=== PATIENT | male | born 1985 | race Caucasian/White ===

== ENCOUNTER 2020-06-19 17:24 | Emergency (ER) | payer MEDICARE, MEDICAID, SELFPAY ==
[2020-06-19 17:42] VITALS: BP 127/74; PULSE 120; RESP 18; TEMP 38.1; O2SAT 95; BMI 26.5
[2020-06-19] MEDS: Acetaminophen 325 MG TABLET 650 MG PO (17:50)
--- NOTE | 2020-06-19 17:53 | ED.FEVER ---
HPI - Fever General Chief Complaint: Fever Stated Complaint: weakness,fever Time Seen by Provider: 06/19/20 17:50 Source: patient Mode of arrival: ambulatory Limitations: no limitations History of Present Illness HPI Narrative: Patient's history of colon cancer stage III in remission not on any immunosuppressant at this time noticed small subcutaneous abscess in right lower back about 3 days ago which got worse today went to [facility] where they did I and D patient went home and started having shaking chills came here with temperature of 102.7 degrees in the ER otherwise patient feels fine patient had a COVID testing done today earlier was negative patient had few abscesses in the past on but never been told MRSA MD elicited complaint: fever Related Data Allergies Allergy/AdvReac Type Severity Reaction Status Date / Time No Known Allergies Allergy Unverified 02/15/20 16:34 Review of Systems Review of Systems: Constitutional : No Weight loss, ++ Fever, ++ Chills ENT/Mouth : No sore throat, No Rhinorrhea Eyes: No Eye Pain, No Swelling Cardiovascular : No Chest Pain, no palpitations Respiratory : No Cough, No Sputum, no shortness of breath Gastrointestinal : no Nausea, No Vomiting, No Diarrhea, No abdominal Pain, no black stools Genitourinary : No Dysuria, No Urinary Frequency Musculoskeletal : No joint pain, No Myalgias, No Joint Swelling Skin : Abscess on the right lower back with redness around it Neuro : No Weakness, No Numbness, No Dizziness, No Headache Psych : No Anxiety/Panic, No Depression Heme/Lymph: No Bruising, No Lymphadenopathy Endocrine : No Polyuria, No Polydipsia All other systems reviewed and are negative PMFSH Past Medical History Medical History Colon cancer Surgical History S/P partial colectomy Social History Social History Smoked in Last 30 Days: Yes Use of substances other than those prescribed or required for medical reasons: No Advance Directives: No Advance Directives Information Provided: Yes Physical Exam Vital Signs: Vital Signs: Last Vital Signs Temp 99.3 F 06/19/20 20:00 Pulse 97 06/19/20 20:00 Resp 17 06/19/20 20:00 BP 113/63 06/19/20 20:00 Pulse Ox 97 06/19/20 20:00 Body Mass Index 26.5 Appearance: Alert. Oriented X3. No acute distress. Eyes: Pupils equal, round and reactive to light. ENT: Pharynx normal. Neck: Normal inspection. Neck supple. CVS: Tachycardiac, S1-S2 normal no murmur Pulses normal. Respiratory: No respiratory distress. Breath sounds normal. Abdomen: Soft and nontender. Bowel sounds are present, no mass palpable, no CVA tenderness Skin: Skin warm and dry. 7 x 7 cm superficial abscess in the right lower back status post I&D with surrounding erythema Extremities: No lower extremity edema. Neuro: Oriented X 3. No motor deficit. No sensory deficit. MDM - Fever MDM Narrative Medical decision making narrative: Patient with superficial abscess status post I&D came for the fever patient's white counts are elevated to 18.3 with normal lactic acid level patient received IV vancomycin and Zosyn in the ER and already has a prescription of doxycycline and Keflex in the pharmacy which will start taking from tomorrow also patient urine is infected with trace leuko esterase and wbc's 15-29 patient will get the medication start tomorrow patient afebrile now and not any more tachycardic feels much better will discharge patient home advised to come back to the ER if not better Differential Diagnosis Differential diagnosis: Likely cellulitis Lab Data Attestation: I reviewed the patient's lab results. Result diagrams: 06/19/20 18:21 06/19/20 18:21 Labs: Lab Results 06/19/20 06/19/20 06/19/20 Range/Units 18:21 18:21 18:21 WBC 18.3 H (4.8-10.8) X10*3/uL RBC 5.14 (4.60-5.80) X10*6/uL Hgb 14.9 (14.0-18.0) g/dl Hct 44.6 (42-52) % MCV 86.8 (80-98) fL MCH 29.0 (27.0-33.0) pg MCHC 33.4 (31.0-36.0) g/dl RDW 12.6 (11.0-16.0) % Plt Count 136 L (160-400) X10*3/uL MPV 12.1 (9.4-12.4) fL Immature Gran % (Auto) 0.9 H (0.0-0.4) % Neut % (Auto) 89.9 H (45-73) % Lymph % (Auto) 3.4 L (20-40) % [place] % (Auto) 5.5 (2-11) % Eos % (Auto) 0.1 (0-4) % Baso % (Auto) 0.2 (0-2) % Lymph # (Auto) 0.6 L (1.2-4.9) X10*3/uL [place] # (Auto) 1.0 (0.1-1.2) X10*3/uL Eos # (Auto) 0.0 (0.0-0.4) X10*3/uL Baso # (Auto) 0.0 (0.0-0.2) X10*3/uL Abs Immat Gran (auto) 0.16 H (0.00-0.03) X10*3/uL Absolute Neuts (auto) 16.5 H (2.0-8.3) X10*3/uL Absolute Nucleated RBC 0.000 (0.0-0.012) X10*3/uL Nucleated RBC % (auto) 0.0 (0.0-0.2) /100WBC Smear Tech's Comments VERIFIED Sodium 136 (135-145) mmol/L Potassium 5.1 (3.3-5.1) mmol/l Chloride 100 (96-108) mmol/L Carbon Dioxide 27 (22-29) mmol/L Anion Gap 14 (12-20) BUN 14 (9-16) mg/dL Creatinine 1.01 (0.5-1.4) mg/dL Estim Creat Clear Calc 106.4 Estimated GFR > 60 Random Glucose 112 (60-115) mg/dL Lactic Acid 1.0 (0.5-2.0) mmol/L Calcium 9.1 (8.4-10.2) mg/dL Urine Color Urine Appearance Urine pH (5.0-8.0) Ur Specific [place] (1.005-1.025) Urine Protein (NEG-TRACE) MG/DL Urine Glucose (UA) (NEG) MG/DL Urine Ketones (NEG) MG/DL Urine Blood (NEG) Urine Nitrite (NEG) Ur Leukocyte Esterase (NEG) Urine RBC (0) /HPF Urine WBC (0-4) /HPF Ur Squamous Epith Cells /LPF Urine Bacteria /LPF Urine Mucus /LPF 06/19/20 Range/Units 18:40 WBC (4.8-10.8) X10*3/uL RBC (4.60-5.80) X10*6/uL Hgb (14.0-18.0) g/dl Hct (42-52) % MCV (80-98) fL MCH (27.0-33.0) pg MCHC (31.0-36.0) g/dl RDW (11.0-16.0) % Plt Count (160-400) X10*3/uL MPV (9.4-12.4) fL Immature Gran % (Auto) (0.0-0.4) % Neut % (Auto) (45-73) % Lymph % (Auto) (20-40) % [place] % (Auto) (2-11) % Eos % (Auto) (0-4) % Baso % (Auto) (0-2) % Lymph # (Auto) (1.2-4.9) X10*3/uL [place] # (Auto) (0.1-1.2) X10*3/uL Eos # (Auto) (0.0-0.4) X10*3/uL Baso # (Auto) (0.0-0.2) X10*3/uL Abs Immat Gran (auto) (0.00-0.03) X10*3/uL Absolute Neuts (auto) (2.0-8.3) X10*3/uL Absolute Nucleated RBC (0.0-0.012) X10*3/uL Nucleated RBC % (auto) (0.0-0.2) /100WBC Smear Tech's Comments Sodium (135-145) mmol/L Potassium (3.3-5.1) mmol/l Chloride (96-108) mmol/L Carbon Dioxide (22-29) mmol/L Anion Gap (12-20) BUN (9-16) mg/dL Creatinine (0.5-1.4) mg/dL Estim Creat Clear Calc Estimated GFR Random Glucose (60-115) mg/dL Lactic Acid (0.5-2.0) mmol/L Calcium (8.4-10.2) mg/dL Urine Color YELLOW Urine Appearance HAZY Urine pH 6.0 (5.0-8.0) Ur Specific [place] 1.025 (1.005-1.025) Urine Protein TRACE (NEG-TRACE) MG/DL Urine Glucose (UA) NEG (NEG) MG/DL Urine Ketones NEG (NEG) MG/DL Urine Blood TRACE (NEG) Urine Nitrite NEG (NEG) Ur Leukocyte Esterase TRACE H (NEG) Urine RBC 5-9 H (0) /HPF Urine WBC 15-29 H (0-4) /HPF Ur Squamous Epith Cells 2+ /LPF Urine Bacteria 1+ /LPF Urine Mucus 2+ /LPF Discharge Plan Discharge Clinical Impression: Abscess Cellulitis Qualifiers: Site of cellulitis: trunk Site of cellulitis of trunk: back Qualified Code(s): L03.312 - Cellulitis of back [any part except buttock] Patient Disposition: Home, Self-Care Instructions: Cellulitis (ED), Abscess (ED) Additional Instructions: Continue antibiotic as prescribed doxycycline and Keflex. Tylenol/Motrin for fever or pain. Report to the ER if fever continues or swelling/rash gets worse Stand Alone Forms: Work/School Release Interventions: ED Discharge Assessment Last Done: 06/19/20 20:32 Discharge Date/Time: 06/19/20 20:33
[2020-06-19 18:31] LABS: Basophils Percent Auto 0.2 % (0-2); Eosinophils Percent Auto 0.1 % (0-4); Hematocrit 44.6 % (42-52); Hemoglobin 14.9 g/dl (14.0-18.0); Imm Gran Abs Auto 0.16 X10*3/uL (0.00-0.03); Imm Gran Pct Auto 0.9 % (0.0-0.4); Lymphocytes Absolute Auto 0.6 X10*3/uL (1.2-4.9); Lymphocytes Percent Auto 3.4 % (20-40); MANUAL DIFF FLAG SCAN; Mean Corpuscular HGB Conc 33.4 g/dl (31.0-36.0); Mean Corpuscular Volume 86.8 fL (80-98); Mean Platelet Volume 12.1 fL (9.4-12.4); Monocytes Percent Auto 5.5 % (2-11); Neutrophils Absolute Auto 16.5 X10*3/uL (2.0-8.3); Neutrophils Percent Auto 89.9 % (45-73); Platelet Count 136 X10*3/uL (160-400); Red Blood Count 5.14 X10*6/uL (4.60-5.80); Red Cell Distribution Width 12.6 % (11.0-16.0); SCAN SMEAR FLAG 1; White Blood Count 18.3 X10*3/uL (4.8-10.8)
[2020-06-19] MEDS: 0.9 % Sodium Chloride 1,000 ML 999 ML IVCONT (18:42)
[2020-06-19] MEDS: Ketorolac Tromethamine 30 MG/ML VIAL IVPUSH (18:44)
[2020-06-19] MEDS: Piperacillin Sodium/Tazobactam 3.375 GM in 0.9 % Sodium Chloride 50 ML IV (18:44)
[2020-06-19 18:48] LABS: Anion Gap 14 (12-20); Blood Urea Nitrogen 14 mg/dL (9-16); Calcium 9.1 mg/dL (8.4-10.2); Carbon Dioxide 27 mmol/L (22-29); Chloride 100 mmol/L (96-108); Creatinine Clr Calc Pharmacy 106.4; Estimated Glomerular Filt Rate > 60; Glucose Random 112 mg/dL (60-115); Potassium 5.1 mmol/l (3.3-5.1); Sodium 136 mmol/L (135-145)
[2020-06-19] MEDS: vancomycin HCL 1,000 MG in 0.9 % Sodium Chloride 250 ML 270 MG IV (18:49)
[2020-06-19 18:52] LABS: Glucose Urine UA NEG (NEG); Leukocyte Esterase Urine TRACE (NEG); Nitrite Urine NEG (NEG); Specific Gravity - Urine 1.025 (1.005-1.025); Urine Blood TRACE (NEG); Urine Ketones NEG (NEG); Urine Protein TRACE MG/DL (NEG-TRACE)
[2020-06-19 18:54] LABS: Appearance Urine HAZY; Color Urine YELLOW
[2020-06-19 19:02] LABS: SLIDE REVIEW VERIFIED
[2020-06-19 19:18] LABS: Bacteria Urine 1+ /LPF; Mucus Urine 2+ /LPF; Squamous Epithelial Cell Urine 2+ /LPF
[2020-06-19 20:00] VITALS: BP 113/63; PULSE 97; RESP 17; TEMP 37.4; O2SAT 97
== END 2020-06-19 20:33 | disposition home or self-care (01) ==
PROVIDERS: Emergency Provider Internal Medicine
DX: L03.312 Cellulitis of back [any part except buttock and flank] (principal); R50.9 Fever, unspecified; Z85.038 Personal history of other malignant neoplasm of large intestine
CPT/HCPCS: 36415; 80048; 81001; 83605; 85025; 87040; 87077; 87086; 87186; 87205; 96361; 96365; 96367; 96375; 99284; J1885; J2543; J3370

== ENCOUNTER 2020-06-20 16:02 | Emergency (ER) | payer MEDICARE, MEDICAID, SELFPAY ==
--- NOTE | 2020-06-20 16:18 | ED.SKABFB ---
HPI - Skin/Abscess/Foreign Bdy General Chief complaint: Recheck/Abnormal Lab/Rx Stated complaint: ?abnormal labs Time Seen by Provider: 06/20/20 16:14 Source: patient Mode of arrival: ambulatory Limitations: no limitations History of Present Illness HPI narrative: Called and told that his cultures were positive from his abscess and to come back in. Patient had colon cancer and chemo in the past. Patient supposed to be on keflex an doxy but has not taken them yet. Related Data Previous Rx's Medication Instructions Recorded cephalexin [Keflex] 500 mg PO QID #40 cap 06/20/20 doxycycline hyclate 100 mg PO BID #20 cap 06/20/20 Allergies Allergy/AdvReac Type Severity Reaction Status Date / Time No Known Allergies Allergy Unverified 02/15/20 16:34 Review of Systems Constitutional: Constitutional: Reports no additional constitutional complaints Eyes: Eyes: Reports no additional eye complaints ENT: Denies dizziness Cardiovascular: Cardiovascular: Reports no additional cardiovascular complaints Respiratory: Respiratory: Reports as per HPI Gastrointestinal: Gastrointestinal: Reports no additional gastrointestinal complaints Musculoskeletal: Musculoskeletal: Reports no additional musculoskeletal complaints Integumentary/Breasts: Skin/Breast: Denies rash Neurologic: Reports system reviewed and no additional complaints, except as documented, Denies dizziness and Denies Sensory deficit (Neuro) Psychiatric: Psychiatric: Denies anxiety PMFSH Past Medical History Medical History Colon cancer Surgical History S/P partial colectomy Social History Social History Alcohol intake: never Smoking Status: Current every day smoker Use of substances other than those prescribed or required for medical reasons: No Advance Directives: No Advance Directives Information Provided: Yes Physical Exam Vital Signs: Vital Signs: Last Vital Signs Temp 99.3 F 06/20/20 16:20 Pulse 115 H 06/20/20 16:20 Resp 17 06/20/20 16:20 BP 149/86 H 06/20/20 16:20 Pulse Ox 98 06/20/20 16:20 Body Mass Index 26.5 Const: General: healthy appearing Nutritional Appearance: average body habitus Orientation/consciousness: oriented to person and patient oriented x3 Limitations: no limitations HENMT: Head: Yes normal to inspection Ears: external ears normal General nose exam: Normal external nose present Mouth: Normal oral and palatal mucosa present and oropharynx normal Throat: Yes posterior oropharynx normal Eyes: General: appearance normal, both eyes and all related structures Neck: Other: supple Neck: Yes normal visual inspection Chest: Chest palpation & inspection: normal inspection of the chest Resp: Auscultation: clear to auscultation bilaterally Cardio: Jugular venous distension: no JVD Rate: regular rate Rhythm: regular rhythm Heart sounds: S1 normal heart sound present and S2 normal heart sound present GI: Inspection: Yes normal to inspection Palpation (GI): Soft to palpation, nontender and No hepatosplenomegaly present Auscultation: normal bowel sounds : General: Yes no CVA tenderness Back/Spine/Pelvis: Back: no CVA tenderness Skin: Other: hard indurated area with slight drainage and 10cm of surrounding erythema, no fluctuance felt Neuro: General: oriented to person and patient oriented x3 Cranial nerves: Yes CN's II-XII intact bilaterally Motor exam (neuro): 5/5 motor strength present throughout Sensory Exam: No Sensory deficit (Neuro) Extrem: General: Yes normal to inspection Psych: Appearance: grossly normal Course Course Course Narrative: WBC down to 12, patient well appearing. I believe the blood cx was contaminant so I recultured MDM - Skin/Abscess/Foreign Bdy Lab Data Result diagrams: 06/20/20 16:49 Labs: Lab Results 06/20/20 Range/Units 16:49 WBC 12.4 H (4.8-10.8) X10*3/uL RBC 4.79 (4.60-5.80) X10*6/uL Hgb 13.9 L (14.0-18.0) g/dl Hct 41.6 L (42-52) % MCV 86.8 (80-98) fL MCH 29.0 (27.0-33.0) pg MCHC 33.4 (31.0-36.0) g/dl RDW 12.4 (11.0-16.0) % Plt Count 120 L (160-400) X10*3/uL MPV 12.4 (9.4-12.4) fL Immature Gran % (Auto) 0.2 (0.0-0.4) % Neut % (Auto) 87.6 H (45-73) % Lymph % (Auto) 6.4 L (20-40) % [place] % (Auto) 5.3 (2-11) % Eos % (Auto) 0.3 (0-4) % Baso % (Auto) 0.2 (0-2) % Lymph # (Auto) 0.8 L (1.2-4.9) X10*3/uL [place] # (Auto) 0.7 (0.1-1.2) X10*3/uL Eos # (Auto) 0.0 (0.0-0.4) X10*3/uL Baso # (Auto) 0.0 (0.0-0.2) X10*3/uL Abs Immat Gran (auto) 0.03 (0.00-0.03) X10*3/uL Absolute Neuts (auto) 10.8 H (2.0-8.3) X10*3/uL Absolute Nucleated RBC 0.000 (0.0-0.012) X10*3/uL Nucleated RBC % (auto) 0.0 (0.0-0.2) /100WBC Discharge Plan Discharge Clinical Impression: Encounter for wound re-check Cellulitis Qualifiers: Site of cellulitis: trunk Site of cellulitis of trunk: back Qualified Code(s): L03.312 - Cellulitis of back [any part except buttock] Patient Disposition: Home, Self-Care Instructions: Cellulitis (ED) Additional Instructions: warm soaks to area Prescriptions: New cephalexin [Keflex] 500 mg capsule 500 mg PO QID Qty: 40 RF: 0 doxycycline hyclate 100 mg capsule 100 mg PO BID Qty: 20 RF: 0
[2020-06-20 16:20] VITALS: BP 149/86; PULSE 115; RESP 17; TEMP 37.4; O2SAT 98; BMI 26.5
--- NOTE | 2020-06-20 17:01 | PC.NURSE ---
Abscess to lower middle back reddened with some serosanguenous drainage. The site was cleansed with NS and dressed with a DSD.
[2020-06-20] MEDS: ceFAZolin Sodium/Dextrose,Iso 2 GM/50 ML PIGGYBACK IV (17:06)
[2020-06-20 17:11] LABS: MANUAL DIFF FLAG NO
[2020-06-20 17:13] LABS: Basophils Percent Auto 0.2 % (0-2); Eosinophils Percent Auto 0.3 % (0-4); Hematocrit 41.6 % (42-52); Hemoglobin 13.9 g/dl (14.0-18.0); Imm Gran Abs Auto 0.03 X10*3/uL (0.00-0.03); Imm Gran Pct Auto 0.2 % (0.0-0.4); Lymphocytes Absolute Auto 0.8 X10*3/uL (1.2-4.9); Lymphocytes Percent Auto 6.4 % (20-40); Mean Corpuscular HGB Conc 33.4 g/dl (31.0-36.0); Mean Corpuscular Volume 86.8 fL (80-98); Mean Platelet Volume 12.4 fL (9.4-12.4); Monocytes Absolute Auto 0.7 X10*3/uL (0.1-1.2); Monocytes Percent Auto 5.3 % (2-11); Neutrophils Absolute Auto 10.8 X10*3/uL (2.0-8.3); Neutrophils Percent Auto 87.6 % (45-73); Platelet Count 120 X10*3/uL (160-400); Red Blood Count 4.79 X10*6/uL (4.60-5.80); Red Cell Distribution Width 12.4 % (11.0-16.0); White Blood Count 12.4 X10*3/uL (4.8-10.8)
== END 2020-06-20 18:05 | disposition home or self-care (01) ==
PROVIDERS: Emergency Provider Emergency Medicine
DX: L03.312 Cellulitis of back [any part except buttock and flank] (principal); F17.200 Nicotine dependence, unspecified, uncomplicated; Z71.6 Tobacco abuse counseling; Z79.899 Other long term (current) drug therapy
CPT/HCPCS: 36415; 85025; 87040; 96365; 99283; 99284; J0690

== ENCOUNTER 2021-04-16 19:48 | Emergency (ER) | payer MEDICARE, MEDICAID, SELFPAY ==
[2021-04-16 20:07] VITALS: BP 140/78; PULSE 96; RESP 18; TEMP 37.1; O2SAT 96; BMI 26.5
[2021-04-16 21:06] LABS: Appearance Urine CLOUDY; Color Urine YELLOW; Glucose Urine UA NEG (NEG); Leukocyte Esterase Urine 1+ (NEG); Nitrite Urine NEG (NEG); Specific Gravity - Urine >= 1.030 (1.005-1.025); UACC Culture Trigger YES; Urine Blood 3+ (NEG); Urine Ketones NEG (NEG); Urine Protein 2+ MG/DL (NEG-TRACE)
[2021-04-16 21:18] LABS: Calcium Oxalate Crystals Urine 2+ /LPF; Squamous Epithelial Cell Urine TRACE /LPF
--- NOTE | 2021-04-16 21:35 | ED_ITS ---
HPI - Male Genitourinary General Chief complaint: Urogenital-Male Stated complaint: bladder pain and blood in urine Time Seen by Provider: 04/16/21 21:23 Source: patient Mode of arrival: ambulatory Limitations: no limitations History of Present Illness HPI Narrative: 36-year-old male with a history of stage IIIB colon cancer 3 years ago s/p resection, chemotherapy, radiation now in remission who presents to the ER with lower abdominal discomfort and dysuria for the last 2 days. He reports dark foul-smelling urine that improved with increased oral hydration. He also reports new onset hematuria with a few drops of blood at the end of his stream today. He states he has discomfort in his bladder area and some intermittent cramping. Had admits to urinary frequency and urgency. He has had no fever or chills. He has had no back pain or flank pain. No nausea, vomiting, diarrhea. He is tolerating p.o. no history of kidney stones. MD Complaint: dysuria Onset (ago): day(s) (2) Duration: intermittent Location: abdomen (Suprapubic area) Radiation: penis Severity: moderate Quality: aching, burning and dull Relieving factors: none Exacerbating factors: urination Associated symptoms: Reports blood in urine and dysuria Related Data Sexually active: Yes Previous Rx's Medication Instructions Recorded cephalexin 500 mg capsule (Keflex) 500 mg PO QID #40 cap 06/20/20 doxycycline hyclate 100 mg capsule 100 mg PO BID #20 cap 06/20/20 doxycycline monohydrate 100 mg 100 mg PO BID #8 cap 06/27/20 capsule levofloxacin 750 mg tablet 750 mg PO DAILY #7 tab 04/16/21 Allergies Allergy/AdvReac Type Severity Reaction Status Date / Time No Known Allergies Allergy Verified 04/16/21 20:06 Review of Systems Review of Systems: Constitutional: No Fever, No Chills Cardiovascular: No Chest Pain, No SOB Respiratory: No Cough, No Sputum Gastrointestinal: No Nausea, No Vomiting, No Diarrhea, No abdominal Pain, No Hematochezia, No Melena Genitourinary: + Dysuria, + Urinary Frequency, + Hematuria Musculoskeletal: No joint pain, No Myalgias Skin: No Skin Lesions, No rash Heme/Lymph: No Lymphadenopathy Endocrine: No Polyuria, No Polydipsia PMFSH Past Medical History Medical History Colon cancer Surgical History S/P partial colectomy Social History Social History Alcohol intake: unknown Patient Tobacco Use Status: Tobacco use Unknown Use of substances other than those prescribed or required for medical reasons: Unknown Advance Directives: No Advance Directives Information Provided: No Physical Exam Vital Signs: Vital Signs: Last Vital Signs Temp 98.8 F 04/16/21 20:07 Pulse 96 04/16/21 20:07 Resp 18 04/16/21 20:07 BP 140/78 H 04/16/21 20:07 Pulse Ox 96 04/16/21 20:07 Body Mass Index 26.5 Appearance: Alert. Oriented X3. No acute distress. HEENT: normal external inspection Neck: Normal inspection. Neck supple. CVS: Normal heart rate and rhythm. Pulses normal. Respiratory: No respiratory distress. Breath sounds normal. Abdomen: Soft and nontender. +BS x4. No CVA tenderness : Normal inspection of external genitalia. No urethral discharge, no testicular tenderness. Skin: Skin warm and dry. Normal skin color. Normal skin turgor. No rashes. Extremities: No lower extremity edema. Neuro: Oriented X 3. Grossly normal, nonfocal. Course Course Course Narrative: 36-year-old male with a history of colon cancer now in remission presents to the ER with suprapubic abdominal pain and dysuria along with new onset hematuria that started today. He recently had normal blood work done by his oncologist couple weeks ago. He has no systemic signs of infection and is nontoxic appearing. Vital signs are normal and his exam is benign. His urinalysis is positive for infection with microscopic hematuria. No signs of pyelonephritis. Doubt kidney stone, he has no flank pain and appears very comfortable. Will start on antibiotics and discharged home with plan for outpatient follow-up. MDM - Male Genitourinary Lab Data Labs: Lab Results 04/16/21 Range/Units 20:48 Urine Color YELLOW Urine Appearance CLOUDY Urine pH 6.0 (5.0-8.0) Ur Specific [place] >= 1.030 H (1.005-1.025) Urine Protein 2+ H (NEG-TRACE) MG/DL Urine Glucose (UA) NEG (NEG) MG/DL Urine Ketones NEG (NEG) MG/DL Urine Blood 3+ H (NEG) Urine Nitrite NEG (NEG) Ur Leukocyte Esterase 1+ H (NEG) Urine RBC 10-14 H (0) /HPF Urine WBC 76-150 H (0-4) /HPF Ur Squamous Epith Cells TRACE /LPF Calcium Oxalate Crystal 2+ /LPF Urine Bacteria NONE /LPF Discharge Plan Discharge Clinical Impression: Urinary tract infection Qualifiers: Urinary tract infection type: acute cystitis Hematuria presence: with hematuria Qualified Code(s): N30.01 - Acute cystitis with hematuria Patient Disposition: Home, Self-Care Instructions: Urinary Tract Infection in Men (ED) Additional Instructions: Your urine test showed infection. Take the prescribed antibiotic as directed - started taking tomorrow night. You were given the 1st dose tonight in the ER. Drink plenty of water. Follow up with your doctor as needed. If you develop new or worsening symptoms call 911 or come back to the ER for further evaluation. Prescriptions: New levofloxacin 750 mg tablet 750 mg PO DAILY Qty: 7 RF: 0 No Action cephalexin [Keflex] 500 mg capsule 500 mg PO QID Qty: 40 RF: 0 doxycycline hyclate 100 mg capsule 100 mg PO BID Qty: 20 RF: 0 doxycycline monohydrate 100 mg capsule 100 mg PO BID Qty: 8 RF: 0 Interventions: ED Discharge Assessment Last Done: 04/16/21 21:46 Discharge Date/Time: 04/16/21 21:46
[2021-04-16] MEDS: levoFLOXacin 750 MG TABLET PO (21:42)
== END 2021-04-16 21:46 | disposition home or self-care (01) ==
PROVIDERS: Emergency Provider Emergency Medicine
DX: N30.01 Acute cystitis with hematuria (principal); Z85.038 Personal history of other malignant neoplasm of large intestine
CPT/HCPCS: 81001; 81003; 87086; 99283; 99284

== ENCOUNTER 2021-07-12 19:38 | Emergency (ER) | payer MEDICARE, MEDICAID, SELFPAY ==
--- NOTE | 2021-07-12 | ECG_ITS ---
Test Reason : CHEST PAIN Blood Pressure : / mmHG Vent. Rate : 085 BPM Atrial Rate : 085 BPM P-R Int : 170 ms QRS Dur : 090 ms QT Int : 346 ms P-R-T Axes : 039 077 040 degrees QTc Int : 411 ms Normal sinus rhythm Normal ECG No previous ECGs available Referred By: Generic ED Physician Electronically Signed By:Jose Grissom
--- NOTE | ~2021-07-12 | XR_ITS ---
EXAMINATION: XR CHEST CLINICAL INFORMATION: Chest pain COMPARISON: None TECHNIQUE: Frontal view of the chest was obtained. FINDINGS: No significant abnormality is noted involving the heart, lungs, mediastinum, bony thorax or soft tissues. XR/XR chest 1V IMPRESSION: Unremarkable examination.
--- NOTE | ~2021-07-12 | CT_ITS ---
EXAMINATION: CT ANGIOGRAM OF THE CHEST; CONTRAST-ENHANCED CT OF THE ABDOMEN AND PELVIS INDICATION: Chest and abdominal pain, history of colon cancer COMPARISON: 06/29/2017 TECHNIQUE: 85 mL Omnipaque 350 IV contrast was utilized. Multidetector helical imaging was performed through the chest per PE protocol. Coronal, sagittal, and MIP images of the chest were created. In addition, multidetector helical imaging was performed through the abdomen and pelvis. Coronal and sagittal reformatted images were created at the technologist workstation. DOSE LOWERING TECHNIQUES: This CT examination was performed using dose optimization techniques as appropriate, variously including the following: - Automated exposure control - Adjustment of mA and/or kV according to patient size (this includes techniques or standardized protocols for targeted exams were dose is matched to indication/reason for exam; i.e. extremities or head) - Use of iterative reconstruction technique DLP: 951 mGy-cm FINDINGS: Chest: No filling defects are seen in the main, lobar, or segmental pulmonary arteries to suggest the presence of pulmonary emboli. Dependent atelectasis is present in the bilateral lower lobes. No additional regions of consolidation are seen. No pneumothorax or pleural effusion. Visualized thyroid gland is unremarkable. There are subcentimeter mediastinal lymph nodes within the range of normal variation. Cardiac size is within normal limits; no pericardial effusion. The aorta is unremarkable. No axillary lymphadenopathy is present. Abdomen/Pelvis: The liver is homogeneous in attenuation without intrahepatic biliary ductal dilatation. The gallbladder appears contracted. The spleen, pancreas, and adrenal glands are within normal limits. Bilateral nephrograms are symmetric. No hydronephrosis. No obstructing renal or ureteral calculi are present. The urinary bladder is unremarkable. The prostate and seminal vesicles are unremarkable. Colonic suture line is present in the left abdomen. Small bowel suture line also noted in the left abdomen. Patient is suspected to be status post appendectomy. No evidence of bowel obstruction. No significant bowel wall thickening is seen. Trace free fluid is noted in the pelvis. No free air is seen The vascular structures are unremarkable. No retroperitoneal or pelvic lymphadenopathy is seen. No acute osseous findings. CT/CT angio chest PE protocol IMPRESSION: 1. No pulmonary embolus identified. 2. No acute findings identified in the abdomen/pelvis. Postoperative changes of the bowel.
[2021-07-12 19:48] VITALS: BP 130/78; PULSE 84; RESP 16; TEMP 36.1; O2SAT 97; BMI 26.5
[2021-07-12 21:35] LABS: MANUAL DIFF FLAG NO
[2021-07-12 21:38] LABS: Basophils Absolute Auto 0.1 X10*3/uL (0.0-0.2); Basophils Percent Auto 0.6 % (0-2); Eosinophils Absolute Auto 0.3 X10*3/uL (0.0-0.4); Eosinophils Percent Auto 3.4 % (0-4); Hematocrit 43.1 % (42.0-52.0); Hemoglobin 14.3 g/dl (14.0-18.0); Imm Gran Abs Auto 0.02 X10*3/uL (0.00-0.03); Imm Gran Pct Auto 0.2 % (0.0-0.4); Lymphocytes Absolute Auto 1.9 X10*3/uL (1.2-4.9); Lymphocytes Percent Auto 23.2 % (20-40); Mean Corpuscular HGB Conc 33.2 g/dl (31.0-36.0); Mean Corpuscular Hemoglobin 28.4 pg (27.0-33.0); Mean Corpuscular Volume 85.5 fL (80.0-98.0); Monocytes Absolute Auto 0.4 X10*3/uL (0.1-1.2); Monocytes Percent Auto 5.3 % (2-11); Neutrophils Absolute Auto 5.6 x10*3/uL (2.0-8.3); Neutrophils Percent Auto 67.3 % (45-73); Platelet Count 143 X10*3/uL (160-400); Red Blood Count 5.04 X10*6/uL (4.60-5.80); Red Cell Distribution Width 12.5 % (11.0-16.0); White Blood Count 8.3 X10*3/uL (4.8-10.8)
[2021-07-12 21:53] LABS: Alanine Aminotransferase 20 U/L (0-40); Albumin Level 4.5 g/dL (3.5-5.0); Alkaline Phosphatase 61 U/L (39-117); Anion Gap 12 (12-20); Aspartate Amino Transferase 20 U/L (5-37); Bilirubin Total 0.4 mg/dL (0.0-1.0); Blood Urea Nitrogen 18 mg/dL (9-16); Calcium 9.2 mg/dL (8.4-10.2); Carbon Dioxide 25 mmol/L (22-29); Chloride 107 mmol/L (96-108); Creatinine Clr Calc Pharmacy 107.5; Estimated Glomerular Filt Rate > 60; Glucose Random 116 mg/dL (60-115); Potassium 4.4 mmol/L (3.3-5.1); Sodium 140 mmol/L (135-145); Total Protein 6.7 g/dL (6.5-8.0)
[2021-07-12 21:56] LABS: Troponin-I High Sensitivity < 3.5 ng/L (<3.5-35.0)
--- NOTE | 2021-07-12 22:26 | ED.CHESTPAIN ---
HPI - Chest Pain General Chief Complaint: Chest Pain Stated Complaint: chest pain Source: patient Mode of arrival: ambulatory Limitations: no limitations History of Present Illness HPI narrative: 36-year-old male presents with dull throbbing chest discomfort that is intermittent for the past 6 months. Over the past several weeks pain has increased in intensity. MD complaint: chest pain and chest discomfort Pertinent past history: other (Stage III colon cancer with resection) Onset (ago): month(s) Timing of current episode: episodic, weekly (Several times weekly) and increasing Prior episodes: Yes Onset: during rest, during exertion and after eating Pain location: left chest Pain radiation: left arm Severity: moderate Pain scale (0-10): 8 Quality: tightness, aching and heaviness Relieving factors: nothing Treatment prior to arrival: none Risk Factors Coronary artery disease risk factors: none Thoracic aortic dissection risk factors: none Related Data Previous Rx's Medication Instructions Recorded cephalexin 500 mg capsule (Keflex) 500 mg PO QID #40 cap 06/20/20 doxycycline hyclate 100 mg capsule 100 mg PO BID #20 cap 06/20/20 doxycycline monohydrate 100 mg 100 mg PO BID #8 cap 06/27/20 capsule levofloxacin 750 mg tablet 750 mg PO DAILY #7 tab 04/16/21 Allergies Allergy/AdvReac Type Severity Reaction Status Date / Time No Known Allergies Allergy Verified 04/16/21 20:06 Review of Systems Review of Systems: Constitutional: No Weight loss, No Fever, No Chills, No Night Sweats, No Fatigue, No Malaise ENT/Mouth: No Hearing loss, No Ear Pain, No Nasal Congestion, No Sinus Pain, No Hoarseness, No sore throat, No Rhinorrhea, No Swallowing Difficulty Eyes: No Eye Pain, No Swelling, No Redness, No Foreign Body, No Discharge, No Vision Changes Cardiovascular: Positive Chest Pain, no SOB, no Dyspnea on Exertion, No Orthopnea, No Edema, No Palpitations Respiratory: No Cough, No Sputum, No Wheezing, No Smoke Exposure, No Dyspnea Gastrointestinal: No Nausea, No Vomiting, No Diarrhea, No abdominal Pain, No Hematochezia, No Melena Genitourinary: No irregular bleeding, No Dysuria, No Urinary Frequency, No Hematuria, No Urinary Incontinence, No Urgency, No Flank Pain, No Urinary Flow Changes, No Hesitancy Musculoskeletal: No joint pain, No Myalgias, No Joint Swelling Skin: No Skin Lesions, No rash Neuro: No Weakness, No Numbness, No Paresthesias, No Loss of Consciousness, No Dizziness, No Headache Psych: No Anxiety/Panic, No Depression, No SI/HI/AH/VH Heme/Lymph: No Bruising, No Bleeding,No Lymphadenopathy Endocrine: No Polyuria, No Polydipsia, No Temperature Intolerance Yes all other systems are reviewed and are negative [facility] Past Medical History Attestation statement: The following information was validated with the patient. Source: old records reviewed Medical History Colon cancer Surgical History (Reviewed 07/12/21 @ : by Yusra Andrade NP) S/P partial colectomy Social History Social History (Reviewed 07/12/21 @ 22: by Yusra Andrade NP) Alcohol intake: unknown Patient Tobacco Use Status: Tobacco use Unknown Advance Directives: No Advance Directives Information Provided: No Physical Exam Vital Signs: Vital Signs: Last Vital Signs Temp 97.0 F 07/12/21 19:48 Pulse 74 07/12/21 23:27 Resp 16 07/12/21 23:27 BP 109/70 07/12/21 23:27 Pulse Ox 97 07/12/21 23:27 BMI result Body Mass Index 26.5 Appearance: Alert. Oriented X3. No acute distress. Head: Normal external exam. Normocephalic. Atraumatic. No De signs noted. No raccoon eyes noted Eyes: PERRLA. EOMI. Conjunctiva and sclera normal. Eyelids normal. ENT: TM's Normal. Pharynx normal. Uvula midline. Moist mucous membranes. No trismus noted. No drooling noted. No muffled voice noted. Neck: Normal inspection. Neck supple. No adenopathy. No meningeal signs. No neck mass noted. CVS: Normal heart rate and rhythm. Heart sound normal. No murmurs noted. Pulses equal to all extremities. Respiratory: No respiratory distress. Painless inspiration. Breath sounds normal. No wheezes/rales/rhonchi noted. Chest nontender. No accessory muscle usage noted or decreased air movement noted. Abdomen: Soft and nontender. Bowel sounds normal in all 4 quadrants. No distention noted. No organomegaly noted. No visible injury noted. Back: No CVA tenderness. Full range of motion noted. Skin: Skin warm and dry. Normal skin color. Normal skin turgor. No rashes/lesions/lacerations noted. Extremities: No lower extremity edema. Extremities exhibit normal range of motion. Extremities nontender. Neuro: cranial nerves 2-12 intact, no focal neural deficits, strength 5/5 to all extremities, No motor deficit. No sensory deficit. Course Course Course Narrative: 36-year-old male with past medical history of stage III colon cancer with resection presents with approximately 6 months of left-sided chest wall pain radiating down to his left flank. Pain is random and intermittent, however over the past few weeks the pain has increased in duration, intensity, and interval. He does not report fevers, chills, shortness of breath, increased pain on exertion or movement, denies dizziness, lightheadedness, repetitive motion or traumatic injury, recent flights, or known aneurysms. Patient also reports no significant family history of cardiac , aneurysm, or sudden . Based on patient's past medical history of colon cancer, will order CT PE study, and CT contrast of abdomen and pelvis. Lab values have been drawn while patient was in the emergency department waiting room with no significant findings. EKG is normal. 00:[address] discussion with [address]iology regarding CT findings with addendum for small amounts of free pelvic fluid. Patient states that he normally has free pelvic fluid secondary to surgical resection. Patient will follow-up with oncology later this month as well as primary care physician. Patient does understand signs and symptoms indicating need for emergent intervention, verbalized understanding of plan of care to discharge home. MDM - Chest Pain Differential Diagnosis Differential diagnosis: Likely fracture of rib, pneumothorax, stable angina, atypical chest pain, st elevation myocardial infarction, costochondritis and chest pain Medical Records Data Attestation: I reviewed the patient's medical records. Lab Data Attestation: I reviewed the patient's lab results. Result diagrams: 07/12/21 21:31 07/12/21 21:31 Labs: Lab Results 07/12/21 07/12/21 07/12/21 Range/Units 21:31 21:31 21:31 WBC 8.3 (4.8-10.8) X10*3/uL RBC 5.04 (4.60-5.80) X10*6/uL Hgb 14.3 (14.0-18.0) g/dl Hct 43.1 (42.0-52.0) % MCV 85.5 (80.0-98.0) fL MCH 28.4 (27.0-33.0) pg MCHC 33.2 (31.0-36.0) g/dl RDW 12.5 (11.0-16.0) % Plt Count 143 L (160-400) X10*3/uL MPV 12.0 (9.4-12.4) fL Immature Gran % (Auto) 0.2 (0.0-0.4) % Neut % (Auto) 67.3 (45-73) % Lymph % (Auto) 23.2 (20-40) % [place] % (Auto) 5.3 (2-11) % Eos % (Auto) 3.4 (0-4) % Baso % (Auto) 0.6 (0-2) % Lymph # (Auto) 1.9 (1.2-4.9) X10*3/uL [place] # (Auto) 0.4 (0.1-1.2) X10*3/uL Eos # (Auto) 0.3 (0.0-0.4) X10*3/uL Baso # (Auto) 0.1 (0.0-0.2) X10*3/uL Abs Immat Gran (auto) 0.02 (0.00-0.03) X10*3/uL Absolute Neuts (auto) 5.6 (2.0-8.3) x10*3/uL Absolute Nucleated RBC 0.000 (0.0-0.012) X10*3/uL Nucleated RBC % (auto) 0.0 (0.0-0.2) /100WBC Sodium 140 (135-145) mmol/L Potassium 4.4 (3.3-5.1) mmol/L Chloride 107 (96-108) mmol/L Carbon Dioxide 25 (22-29) mmol/L Anion Gap 12 (12-20) BUN 18 H (9-16) mg/dL Creatinine 0.99 (0.5-1.4) mg/dL Estim Creat Clear Calc 107.5 Estimated GFR > 60 Random Glucose 116 H (60-115) mg/dL Calcium 9.2 (8.4-10.2) mg/dL Total Bilirubin 0.4 (0.0-1.0) mg/dL AST 20 (5-37) U/L ALT 20 (0-40) U/L Alkaline Phosphatase 61 (39-117) U/L Troponin I High Sens < 3.5 (<3.5-35.0) ng/L Total Protein 6.7 (6.5-8.0) g/dL Albumin 4.5 (3.5-5.0) g/dL Imaging Data CTA chest abdomen and pelvis: Attestation: I personally reviewed and interpreted this imaging study as follows: Radiologist's impression: Study IMPRESSION should also include the fact that there is trace free fluid in the pelvis which is of uncertain etiology. This was discussed with Yusra Andrade NP on 07/13/2021 12:26 AM. Addendum Dictated By: TOÑITO JOHNS MD Addendum Signed By: <Electronically signed by TOÑITO JOHNS MD in OV> 07/13/2127 Addendum Cosigned By: DD/ /21/2232 TD/TT: / EXAMINATION: CT ANGIOGRAM OF THE CHEST; CONTRAST-ENHANCED CT OF THE ABDOMEN AND PELVIS INDICATION: Chest and abdominal pain, history of colon cancer COMPARISON: 06/29/2017 TECHNIQUE: 85 mL Omnipaque 350 IV contrast was utilized. Multidetector helical imaging was performed through the chest per PE protocol. Coronal, sagittal, and MIP images of the chest were created. In addition, multidetector helical imaging was performed through the abdomen and pelvis. Coronal and sagittal reformatted images were created at the technologist workstation. DOSE LOWERING TECHNIQUES: This CT examination was performed using dose optimization techniques as appropriate, variously including the following: ?- Automated exposure control ?- Adjustment of mA and/or kV according to patient size (this includes techniques or standardized protocols for targeted exams were dose is matched to indication/reason for exam; i.e. extremities or head) ?- Use of iterative reconstruction technique DLP: 951 mGy-cm FINDINGS: Chest: No filling defects are seen in the main, lobar, or segmental pulmonary arteries to suggest the presence of pulmonary emboli. Dependent atelectasis is present in the bilateral lower lobes. No additional regions of consolidation are seen. No pneumothorax or pleural effusion. Visualized thyroid gland is unremarkable. There are subcentimeter mediastinal lymph nodes within the range of normal variation. Cardiac size is within normal limits; no pericardial effusion. The aorta is unremarkable. No axillary lymphadenopathy is present. Abdomen/Pelvis: The liver is homogeneous in attenuation without intrahepatic biliary ductal dilatation. The gallbladder appears contracted. The spleen, pancreas, and adrenal glands are within normal limits. Bilateral nephrograms are symmetric. No hydronephrosis. No obstructing renal or ureteral calculi are present. The urinary bladder is unremarkable. The prostate and seminal vesicles are unremarkable. Colonic suture line is present in the left abdomen. Small bowel suture line also noted in the left abdomen. Patient is suspected to be status post appendectomy. No evidence of bowel obstruction. No significant bowel wall thickening is seen. Trace free fluid is noted in the pelvis. No free air is seen The vascular structures are unremarkable. No retroperitoneal or pelvic lymphadenopathy is seen. No acute osseous findings. CT/CT abdomen pelvis w con IMPRESSION: 1.? No pulmonary embolus identified. 2.? No acute findings identified in the abdomen/pelvis. Postoperative changes of the bowel. Chest x-ray: Attestation: I personally reviewed and interpreted this imaging study as follows: Radiologist's impression: EXAMINATION: XR CHEST CLINICAL INFORMATION: Chest pain COMPARISON: None TECHNIQUE: Frontal view of the chest was obtained. FINDINGS: No significant abnormality is noted involving the heart, lungs, mediastinum, bony thorax or soft tissues. XR/XR chest 1V IMPRESSION: Unremarkable examination. ECG Data ECG #1: Attestation: I personally reviewed and interpreted this ECG as follows: ECG interpretation date: 07/12/21 ECG interpretation time: 19:43 Prior ECG tracings: not available for review Interpretation: Vent. rate 85 BPM MI interval 170 ms QRS duration 90 ms QT/QTc 346/411 ms P-R-T axes 39 77 40 Normal sinus rhythm Normal ECG No previous ECGs available Discharge Plan Discharge Clinical Impression: Atypical chest pain Patient Disposition: Home, Self-Care Instructions: Noncardiac Chest Pain (ED) Additional Instructions: You were evaluated for left-sided chest pain. Based on your past medical history of stage III colon cancer, we completed a CT angiogram of the chest abdomen and pelvis. CTA was negative for blood clots and findings requiring emergent intervention. Please continue to follow-up with your oncologist. Chest x-ray was negative. Cardiac enzymes were negative. EKG was normal sinus. Thank you for choosing this emergency department for evaluation. Please follow-up with primary care physician as needed. Return to the emergency department for any new, concerning, or worsening symptoms. Prescriptions: No Action cephalexin [Keflex] 500 mg capsule 500 mg PO QID Qty: 40 0RF doxycycline hyclate 100 mg capsule 100 mg PO BID Qty: 20 0RF doxycycline monohydrate 100 mg capsule 100 mg PO BID Qty: 8 0RF levofloxacin 750 mg tablet 750 mg PO DAILY Qty: 7 0RF Interventions: ED Discharge Assessment Last Done: 07/13/21 00:41 Discharge Date/Time: 07/13/21 00:42
[2021-07-12 23:27] VITALS: BP 109/70; PULSE 74; RESP 16; O2SAT 97
[2021-07-12] MEDS: iohexoL 350 MG/ML 100 ML INFUS..BTL 85 ML IV (23:43)
== END 2021-07-13 00:42 | disposition home or self-care (01) ==
PROVIDERS: Emergency Provider Emergency Medicine
DX: R07.89 Other chest pain (principal); Z85.038 Personal history of other malignant neoplasm of large intestine
CPT/HCPCS: 36415; 71045; 71275; 74177; 80053; 84484; 85025; 93005; 99284; Q9967

== ENCOUNTER 2022-04-29 11:23 | Emergency (ER) | payer OTHER, MEDICARE, MEDICAID, SELFPAY ==
--- NOTE | ~2022-04-29 | XR_ITS ---
EXAMINATION: XR HAND, RIGHT CLINICAL INFORMATION: Soft tissue swelling at the first MCP joint COMPARISON: None TECHNIQUE: PA, lateral, and oblique views of the right hand. FINDINGS: Bone alignment is normal. No fracture or dislocation. Normal joint spaces. Question prominent soft tissues adjacent to the first metacarpal bone. XR/XR hand RT min 3V IMPRESSION: Question prominent soft tissues adjacent to the first metacarpal bone. Otherwise unremarkable exam.
[2022-04-29 11:55] VITALS: BP 116/71; PULSE 83; RESP 19; TEMP 36.6; O2SAT 98; BMI 26.5
--- NOTE | 2022-04-29 11:57 | ED_ITS ---
HPI - Extremity Problem General Chief complaint: Extremity Injury, Upper Stated complaint: R hand inj 04/29/22 work inj Time Seen by Provider: 04/29/22 14:58 Related Data Previous Rx's Medication Instructions Recorded cephalexin 500 mg capsule (Keflex) 500 mg PO QID #40 caps 06/20/20 doxycycline hyclate 100 mg capsule 100 mg PO BID #20 caps 06/20/20 doxycycline monohydrate 100 mg 100 mg PO BID #8 caps 06/27/20 capsule levofloxacin 750 mg tablet 750 mg PO DAILY #7 tabs 04/16/21 Allergies Allergy/AdvReac Type Severity Reaction Status Date / Time No Known Allergies Allergy Verified 04/16/21 20:06 [facility] Past Medical History Medical History Colon cancer Surgical History S/P partial colectomy Social History Social History Alcohol intake: unknown Patient Tobacco Use Status: Tobacco use Unknown Advance Directives: No Advance Directives Information Provided: No Physical Exam Vital Signs: Vital Signs: Last Vital Signs Temp 98 F 04/29/22 11:55 Pulse 83 04/29/22 11:55 Resp 19 04/29/22 11:55 BP 116/71 04/29/22 11:55 Pulse Ox 98 04/29/22 11:55 O2 Del Method 04/29/22 11:55 BMI result Body Mass Index 26.5 Course Course Course Narrative: RME: 37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 Coworkers had to pry the tire office finger. Currently complaining of pain in his right thumb MCP joint and hand, soft tissue swelling and tenderness over the right MCP joint. The right hand and thumb x-rays ordered. Discharge Plan Discharge Clinical Impression: Eloped from emergency department Patient Disposition: Elopement Prescriptions: No Action cephalexin [Keflex] 500 mg capsule 500 mg PO QID Qty: 40 0RF doxycycline hyclate 100 mg capsule 100 mg PO BID Qty: 20 0RF doxycycline monohydrate 100 mg capsule 100 mg PO BID Qty: 8 0RF levofloxacin 750 mg tablet 750 mg PO DAILY Qty: 7 0RF Discharge Date/Time: 04/29/22 20:34
--- NOTE | 2022-04-29 20:34 | PC.NURSE ---
called for triage, not in waiting room.
== END 2022-04-29 20:34 | disposition left against medical advice (07) ==
PROVIDERS: Emergency Provider Emergency Medicine
DX: S67.01XA Crushing injury of right thumb, initial encounter (principal); W31.82XA Contact with other commercial machinery, initial encounter; Y93.89 Activity, other specified; Y92.59 Other trade areas as the place of occurrence of the external cause; Y99.0 Civilian activity done for income or pay
CPT/HCPCS: 73130; 99281; 99283

== ENCOUNTER 2023-03-26 08:20 | Outpatient (REF) | payer MEDICARE, MEDICAID, SELFPAY ==
--- NOTE | ~2023-03-26 | XR_ITS ---
EXAMINATION: XR FOOT, RIGHT XR ANKLE, RIGHT CLINICAL INFORMATION: Pain in right ankle and joints of foot. COMPARISON: None available. TECHNIQUE: 3 views right foot. 3 views right ankle. FINDINGS: RIGHT ANKLE: Ankle joint effusion with soft tissue swelling. Small dorsal and plantar calcaneal spurs. Possible hypertrophic change versus an avulsion fracture fragment at the proximal dorsal aspect of the navicular. Correlation with the clinical exam recommended to determine further management. RIGHT FOOT: Mild degenerative changes in the 1st metatarsophalangeal joint with joint space narrowing and hypertrophic change. Punctate calcification medial to the distal tuft of the great toe. Punctate soft tissue calcification lateral to the midfoot. XR/XR ankle RT min 3V IMPRESSION: 1. Possible hypertrophic change versus an avulsion fracture fragment at the proximal dorsal aspect of the navicular. Correlation with the clinical exam recommended to determine further management. 2. Punctate calcifications in the soft tissues adjacent to the foot, as detailed above. Correlation with the clinical exam recommended to determine significance. Recommend followup imaging in 10-14 days if fracture is suspected.
--- NOTE | ~2023-03-26 | XR_ITS ---
EXAMINATION: XR FOOT, RIGHT XR ANKLE, RIGHT CLINICAL INFORMATION: Pain in right ankle and joints of foot. COMPARISON: None available. TECHNIQUE: 3 views right foot. 3 views right ankle. FINDINGS: RIGHT ANKLE: Ankle joint effusion with soft tissue swelling. Small dorsal and plantar calcaneal spurs. Possible hypertrophic change versus an avulsion fracture fragment at the proximal dorsal aspect of the navicular. Correlation with the clinical exam recommended to determine further management. RIGHT FOOT: Mild degenerative changes in the 1st metatarsophalangeal joint with joint space narrowing and hypertrophic change. Punctate calcification medial to the distal tuft of the great toe. Punctate soft tissue calcification lateral to the midfoot. XR/XR foot RT min 3V IMPRESSION: 1. Possible hypertrophic change versus an avulsion fracture fragment at the proximal dorsal aspect of the navicular. Correlation with the clinical exam recommended to determine further management. 2. Punctate calcifications in the soft tissues adjacent to the foot, as detailed above. Correlation with the clinical exam recommended to determine significance. Recommend followup imaging in 10-14 days if fracture is suspected.
== END 2023-03-26 08:21 | disposition home or self-care (01) ==
LOC: HO.HOSX 08:20
PROVIDERS: Visit Provider Physician Assistant
DX: S92.351A Displaced fracture of fifth metatarsal bone, right foot, initial encounter for closed fracture (principal); M25.571 Pain in right ankle and joints of right foot
CPT/HCPCS: 73610; 73630; 99202

== ENCOUNTER 2023-03-26 13:29 | Outpatient (AMB) | payer MEDICARE, MEDICAID, SELFPAY ==
--- NOTE | 2023-03-26 13:48 | A.OFFVIS_ITS ---
Intake Vital Signs 03/26/23 13:49 Height 5 ft 10 in Weight 200 lb BMI 28.7 Intake Visit Reasons: fc-right avulsion fracture Intake Note: Khari 37 yr old male presents today with his girlfriend Soniya, for his ED follow up ([facility]) visit for his right ankle injury from 03/20/23, [place] [employer] [place], [place], felt a pop in his ankle and felt severe pain. States he felt his foot went cold. Seen in [place] ED where xrays were taken, placed in a boot and given crutches. Currently states his swelling has improved, has swelling, limited with WB and ROM. States he has weakness and feels like he will fall. Also has numbness and tingling. Xraysb updated in office. Hx of colon cancer. Allergies No Known Allergies Allergy (Verified 03/26/23 13:58) HPI fc-right avulsion fracture HPI Details 37-year-old male who presents to the [facility] today with his girlfriend for an ED follow-up of right ankle injury on 03/20/23. He states he landed wrong on a trampoline and felt a pop in his ankle and experienced severe pain as well as cold foot. He was seen at [place] ED where x-rays were performed and he was placed in a boot and given crutches. He currently states he has pain, swelling and limited ROM in his foot. He also c/o numbness, tingling, weakness and feels like he will fall. He has a history of colon cancer. [facility] Medical History Colon cancer Surgical History S/P partial colectomy Social History (Updated 03/26/23 @ 13:59 by TAJ Joyce) Alcohol intake: unknown Patient Tobacco Use Status: Tobacco use Unknown Current occupational status: employed Current occupation: [employer]. Review of Systems Const All systems reviewed & are unremarkable except as noted in HPI and below Physical Exam Vital Signs: BMI result Body Mass Index 28.7 Const General: cooperative and no acute distress Orientation/consciousness: patient oriented x3 Resp Effort & Inspection: normal respiratory effort and able to speak in complete sentences Cardio Peripheral pulses: Peripheral pulses 2+ throughout Neuro General: patient oriented x3 Extrem Other: Right foot: Normal to inspection. He has diffused swelling over the foot with tenderness along the dorsum and lateral aspect of foot. No pain along the Achilles tendon. No notable defect. AHL is intact. NVI. Results Reviewed Results Reviewed: X-rays of the foot and ankle obtained in the office today show an avulsion fracture along the cuboid of the right foot. Assessment & Plan Assessment & Plan (1) Foot fracture, right: Code(s): S92.901A - Unspecified fracture of right foot, initial encounter for closed fracture Qualifiers: Encounter type: initial encounter Fracture type: closed Qualified Code(s): S92.901A - Unspecified fracture of right foot, initial encounter for closed fracture Plan He was given a short walking boot weight bearing as tolerated. He can rm for hygiene and resting. He should ice and elevate. I did send him a prescription of ibuprofen 800 mg to take three times a day to help with swelling and pain. He will remain out of work until I see him back in back in 4-6 weeks with x-rays, sooner if needed. Orders: Orders XR ankle RT min 3V 03/26/23 M25.571 - Pain in right ankle and joints of right foot XR foot RT min 3V 03/26/23 S92.351A - Displaced fracture of fifth metatarsal bone, right foot, initial encounter for closed fracture Medications: New ibuprofen 800 mg PO Q8H PRN 90 tabs 3RF pain 30 days S92.901A - Unspecified fracture of right foot, initial encounter for closed fracture Patient Instructions: Scribed for Zander Morris PA-C, by Mikal Robledo certified medical biller, on 03/26/2023 at 1:45 PM EST. IZander PA-C, have personally reviewed and agree with the information entered by the scribe. Coding Level of Care Code New Pt Level 3 (66509) Diagnoses Closed fracture of right foot, initial encounter S92.901A Encounter type: initial encounter Fracture type: closed
[2023-03-26 13:49] VITALS: BMI 28.7
== END 2023-03-26 14:44 | disposition home or self-care (01) ==
PROVIDERS: Visit Provider Physician Assistant
DX: S92.901A Unspecified fracture of right foot, initial encounter for closed fracture (principal)
CPT/HCPCS: 99204

== ENCOUNTER 2023-05-06 12:39 | Outpatient (REF) | payer MEDICARE, SELFPAY | END 2023-05-06 12:40 | disposition home or self-care (01) | LOC: HO.HOSX 12:39 | PROVIDERS: Visit Provider Physician Assistant | DX: Z13.89 Encounter for screening for other disorder (principal) ==